=== PATIENT | female | born 1965 | race Caucasian/White ===

== ENCOUNTER 2018-01-15 11:08 | Emergency (ER) | payer BC, OTHER ==
[2018-01-15 12:16] VITALS: BP 101/63
--- NOTE | 2018-01-15 12:29 | UC ---
Complaint Female HPI - HPI Summary HPI Summary: 52 yo female with freq / urg / dysuria x approx 1 week. Sx started as minor, but today particularly worse. + feeling of malaise. No back pain. No loreto hematuria. Hx uti, treated approx one month ago. Took abx for 7 days, pcp rechecked and said it was ok. Does not know what the antibiotic was. Ms. Friedman does have hx diabetes, glucose levels have been running in thw 100's , per pt report. Last hemoglobin a1c in the 7's. No fever. - History Of Current Complaint Chief Complaint: UCGU Stated Complaint: URINARY Time Seen by Provider: 01/15/18 12:10 Hx Obtained From: Patient Hx Last Menstrual Period: 2014 Pain Intensity: 5 - Allergies/Home Medications Allergies/Adverse Reactions: Allergies Allergy/AdvReac Type Severity Reaction Status Date / Time ciprofloxacin [From Cipro] Allergy Severe Shakes, Verified 01/15/18 12:18 possible seizure azelastine [From Astelin] Allergy Vomiting Verified 01/15/18 12:18 cephalexin [From Keflex] Allergy Swelling Verified 01/15/18 12:18 Home Medications: Home Medications Ascorbic Acid TAB* [Vitamin C TAB*] 500 mg PO DAILY 01/15/18 [History Confirmed 01/15/18] Calcium Citrate 200 mg PO DAILY 01/15/18 [History Confirmed 01/15/18] Cranberry Conc/C/Bacill Coag [Azo Cranberry 250-30 mg] 1 tab PO ONCE PRN [History Confirmed 01/15/18] Multivitamin [Daily Multiple Vitamin] 1 each PO DAILY 01/15/18 [History Confirmed 01/15/18] PARoxetine HCL TAB* [Paxil TAB*] 80 mg PO DAILY 01/15/18 [History Confirmed 08/30] clonazePAM TAB(*) [KlonoPIN TAB(*)] 0.5 mg PO DAILY PRN 01/15/18 [History Confirmed 01/15/18] PMH/Surg Hx/FS Hx/Imm Hx Previously Healthy: Yes - Surgical History Surgical History: Yes Surgery Procedure, Year, and Place: SINUS; bladder surgery 2014 Dr. Trevino [facility] - Family History Known Family History: Positive: Hypertension - Social History Alcohol Use: None Substance Use Type: None Smoking Status (MU): Never Smoked Tobacco Review of Systems Constitutional: Negative Physical Exam Vital Signs: Initial Vital Signs Temp 99.5 F 01/15/18 12:05 Pulse 77 01/15/18 12:05 Resp 18 01/15/18 12:05 BP 101/63 01/15/18 12:05 Pulse Ox 97 01/15/18 12:05 Complaint Female Dx - Course Course Of Treatment: 12:40: I spoke with both [facility] here and then called [facility] -> medication profile search - November 30 bactrim ds twice daily. Reviewed urine dip ([employer]). Note - Ms. Friedman had taken pyridium approx 15 min prior to giving urine sample, but urine was not yet discolored. Cx sent. Reviewed coa /tx plan with Ms. Friedman. Questions as posed answered to the best of my ability. - Differential Dx/Diagnosis Provider Diagnoses: UTI / cystitis Discharge - Discharge Plan Condition: Stable Disposition: HOME Patient Education Materials: Urinary Tract Infection in Women (DC) Referrals: Adama HOLDEN,Rosi Jiménez [Primary Care Provider] - - Billing Disposition and Condition Condition: STABLE Disposition: Home
== END 2018-01-15 13:18 | disposition home or self-care (01) ==
LOC: UCCORT 11:08
DX: N39.0 Urinary tract infection, site not specified (principal); N30.90 Cystitis, unspecified without hematuria; Z88.1 Allergy status to other antibiotic agents; Z88.8 Allergy status to other drugs, medicaments and biological substances
CPT/HCPCS: 81003; 87086; 99212; G0463